=== PATIENT | male | born 1955 ===

== ENCOUNTER 2024-10-17 14:39 | Emergency (ER) | payer SELFPAY ==
[2024-10-17 14:46] VITALS: BP 154/92; TEMP 97.6; O2SAT 97
[2024-10-17] MEDS ORDERED: ALLO100T PO (15:00)
[2024-10-17] MEDS ORDERED: OXYC-1 PO (15:00)
[2024-10-17] MEDS ORDERED: LISI2.5T9 PO (15:00)
[2024-10-17] MEDS ORDERED: METH-1164 PO (15:00)
[2024-10-17] MEDS ORDERED: [UNRECOGNIZED DRUG - CODE] (15:00)
[2024-10-17] MEDS ORDERED: OXYC1TAB23 PO (15:00)
== END 2024-10-17 15:50 | disposition left against medical advice (07) ==
LOC: M ED 14:39
DX: Z53.21 Procedure and treatment not carried out due to patient leaving prior to being seen by health care provider (principal)